=== PATIENT | female | born 1970 | race Two or more races ===

== ENCOUNTER 2017-12-14 12:10 | Emergency (ER) | payer MEDICAID ==
[~2017-12-14] VITALS: Ht 160 cm; Wt 127.1 kg
[~2017-12-14 12:10] MED LIST: HYDR-3240 PO; LOSA50TA6; MIGRAINE MEDICINE; THYROID MEDICINE
[2017-12-14] MEDS ORDERED: HYDROmorphone 1 MG/ML, 1ML IVPush PRN (13:30)
[2017-12-14] MEDS ORDERED: ONDANSETRON 2MG/ML, 2ML IVPush ONE (13:30)
[2017-12-14] MEDS ORDERED: SODIUM CHLORIDE FLUSH 10ML SYR IVF ONE (13:30)
[2017-12-14] MEDS ORDERED: SODIUM CHLORIDE 0.9% 1,000ML IVBOLUS ONE (13:30)
[2017-12-14] MEDS ORDERED: ONDANSETRON 2MG/ML, 2ML ONE (13:31)
[2017-12-14] MEDS ORDERED: HYDROmorphone 2 MG/ML, 1ML ONE (13:31)
[2017-12-14 13:36] LABS: BASOPHILS # (AUTO) 0.03 x10^3/uL (0-0.1); BASOPHILS % (AUTO) 0 % (0-1); EOSINOPHILS % (AUTO) 2 % (1-7); LYMPHOCYTES % (AUTO) 20 % (22-44); MD NO; MEAN CORPUSCULAR HEMOGLOBIN 31.4 pg (27.0-34.8); MEAN CORPUSCULAR HGB CONC 34.2 g/dL (32.4-35.8); MEAN CORPUSCULAR VOLUME 91.7 fL (80-100); MONOCYTES # (AUTO) 0.58 x10^3/uL (0.2-0.8); MONOCYTES % (AUTO) 6 % (2-9); NEUTROPHILS # (AUTO) 6.59 x10^3/uL (1.8-6.8); NEUTROPHILS % (AUTO) 71 % (42-75); PLATELET COUNT 209 x10^3/uL (130-400); RED BLOOD COUNT 5.04 x10^6/uL (3.82-5.3); RED CELL DISTRIBUTION WIDTH 13.9 % (9.6-15.2)
[2017-12-14 13:44] LABS: ALBUMIN 3.2 g/dL (3.4-5.0); ANION GAP 7 mmol/L (5-15); CALCIUM 8.6 mg/dL (8.5-10.1); CHLORIDE 104 mmol/L (98-107); CREATININE 0.61 mg/dL (0.55-1.02)
[2017-12-14 16:33] VITALS: BP 135/76
[2017-12-15] MEDS ORDERED: NAPR500T4 PO (13:03)
[2017-12-15] MEDS ORDERED: GUAI-334 PO (13:03)
[2017-12-15] MEDS ORDERED: LOSA100T6 PO (13:03)
== END 2017-12-14 16:35 | disposition home or self-care (01) ==
LOC: ED 16:05
DX: J02.8 Acute pharyngitis due to other specified organisms (principal); R51 Headache; I10 Essential (primary) hypertension; Z90.49 Acquired absence of other specified parts of digestive tract
CPT/HCPCS: 36415; 70450; 71045; 80048; 82040; 83605; 85025; 96361; 96374; 96375; 99285; J1170; J2405; J7030

== ENCOUNTER 2018-08-25 15:37 | Emergency (ER) | payer MEDICAID ==
[~2018-08-25] VITALS: Ht 160 cm; Wt 123.8 kg
[~2018-08-25 15:37] MED LIST changes: +GUAI-334 PO; +LOSA100T7 PO; -LOSA50TA6; +LOSA50TA7; +NAPR-685 PO
[2018-08-25] MEDS ORDERED: HYDR12.53 PO (16:04)
[2018-08-25] MEDS ORDERED: METF500T17 PO (16:04)
[2018-08-25 16:15] LABS: BASOPHILS # (AUTO) 0.04 x10^3/uL (0-0.1); BASOPHILS % (AUTO) 0 % (0-1); EOSINOPHILS # (AUTO) 0.15 x10^3/uL (0-0.4); EOSINOPHILS % (AUTO) 1 % (1-7); LYMPHOCYTES % (AUTO) 27 % (22-44); MD NO; MEAN CORPUSCULAR HEMOGLOBIN 32.3 pg (27.0-34.8); MEAN CORPUSCULAR HGB CONC 34.8 g/dL (32.4-35.8); MEAN CORPUSCULAR VOLUME 92.8 fL (80-100); MEAN PLATELET VOLUME 9.5 fL (7.4-10.4); MONOCYTES # (AUTO) 0.76 x10^3/uL (0.2-0.8); MONOCYTES % (AUTO) 7 % (2-9); NEUTROPHILS # (AUTO) 6.68 x10^3/uL (1.8-6.8); NEUTROPHILS % (AUTO) 64 % (42-75); PLATELET COUNT 196 x10^3/uL (130-400); RED BLOOD COUNT 4.98 x10^6/uL (3.82-5.3)
[2018-08-25] MEDS ORDERED: KETOROLAC 30 MG/1 ML ONE (16:20)
[2018-08-25] MEDS ORDERED: METHOCARBAMOL 750 MG TABLET ONE (16:20)
[2018-08-25 16:24] LABS: ALBUMIN 3.4 g/dL (3.4-5.0); ANION GAP 9 mmol/L (5-15); CALCIUM 9.1 mg/dL (8.5-10.1); CHLORIDE 107 mmol/L (98-107); CREATININE 0.61 mg/dL (0.55-1.02)
[2018-08-25 16:28] LABS: TROPONIN I < 0.015 ng/mL (0.000-0.045)
[2018-08-25] MEDS ORDERED: KETOROLAC 30 MG/1 ML IM ONE (16:30)
[2018-08-25] MEDS ORDERED: METHOCARBAMOL 750 MG TABLET PO ONE (16:30)
[2018-08-25 18:36] VITALS: BP 119/48
== END 2018-08-25 18:38 | disposition home or self-care (01) ==
LOC: ED 18:00
DX: M47.892 Other spondylosis, cervical region (principal); M25.512 Pain in left shoulder; R06.02 Shortness of breath; R07.9 Chest pain, unspecified
CPT/HCPCS: 36415; 71045; 72125; 73030; 80048; 82040; 84484; 85025; 85379; 93005; 96372; 99285; J1885

== ENCOUNTER 2019-01-03 13:16 | Emergency (ER) | payer MEDICAID ==
[~2019-01-03] VITALS: Ht 160 cm; Wt 121.4 kg
[~2019-01-03 13:16] MED LIST changes: +HYDR12.517 PO; +LOSA100T14 PO; -LOSA100T7 PO; +LOSA50TA14; -LOSA50TA7; +METF500T17 PO
[2019-01-03 13:42] VITALS: BP 147/93
[2019-01-03 14:33] LABS: BASOPHILS # (AUTO) 0.04 x10^3/uL (0-0.1); BASOPHILS % (AUTO) 0 % (0-1); EOSINOPHILS # (AUTO) 0.11 x10^3/uL (0-0.4); EOSINOPHILS % (AUTO) 1 % (1-7); LYMPHOCYTES # (AUTO) 2.21 x10^3/uL (1-3.4); LYMPHOCYTES % (AUTO) 22 % (22-44); MD NO; MEAN CORPUSCULAR HEMOGLOBIN 30.4 pg (27.0-34.8); MEAN CORPUSCULAR HGB CONC 33.3 g/dL (32.4-35.8); MEAN CORPUSCULAR VOLUME 91.3 fL (80-100); MEAN PLATELET VOLUME 9.6 fL (7.4-10.4); MONOCYTES # (AUTO) 0.66 x10^3/uL (0.2-0.8); MONOCYTES % (AUTO) 6 % (2-9); NEUTROPHILS # (AUTO) 7.28 x10^3/uL (1.8-6.8); NEUTROPHILS % (AUTO) 71 % (42-75); PLATELET COUNT 227 x10^3/uL (130-400); RED BLOOD COUNT 5.43 x10^6/uL (3.82-5.3); RED CELL DISTRIBUTION WIDTH 14.4 % (9.6-15.2)
[2019-01-03 14:47] LABS: ALBUMIN 3.3 g/dL (3.4-5.0); ANION GAP 7 mmol/L (5-15); CALCIUM 9.5 mg/dL (8.5-10.1); CHLORIDE 103 mmol/L (98-107)
[2019-01-03 14:50] LABS: ALANINE AMINOTRANSFERASE 69 U/L (12-78); ALKALINE PHOSPHATASE 124 U/L (45-117); BILIRUBIN,TOTAL 0.8 mg/dL (0.2-1.0); TOTAL PROTEIN 8.2 g/dL (6.4-8.2)
--- NOTE | 2019-01-03 16:20 | NUR ---
NO ANSWER IN LOBBY
--- NOTE | 2019-01-03 16:39 | NUR ---
NO ANSWER IN LOBBY.
--- NOTE | 2019-01-03 17:10 | NUR ---
NO ANSWER IN LOBBY. ASSUMING PATIENT ELOPEMENT.
== END 2019-01-03 17:13 | disposition left against medical advice (07) ==
LOC: ED 17:10
DX: R53.1 Weakness (principal); E66.01 Morbid (severe) obesity due to excess calories; Z68.42 Body mass index [BMI] 45.0-49.9, adult
CPT/HCPCS: 36415; 71046; 80053; 85025; 93005; 99284

== ENCOUNTER 2019-12-07 14:55 | Emergency (ER) | payer MEDICAID ==
[~2019-12-07] VITALS: Ht 160 cm; Wt 123.1 kg
[~2019-12-07 14:55] MED LIST changes: +AMLO10TA8 PO
[2019-12-07 15:03] VITALS: BP 158/58
[2019-12-07] MEDS ORDERED: DIPH,PERTUSS(ACELL),TET VAC/PF 0.5 ML IM-VACC ONE ×2 (15:14→15:30)
[2019-12-07] MEDS ORDERED: LIDOCAINE-MPF 1%, 5ML ONE (15:14)
[2019-12-07] MEDS ORDERED: LIDOCAINE-MPF 1%, 5ML INFIL ONE (15:30)
== END 2019-12-07 15:51 | disposition home or self-care (01) ==
LOC: ED 15:30
DX: L02.411 Cutaneous abscess of right axilla (principal); L03.113 Cellulitis of right upper limb; I10 Essential (primary) hypertension; G43.909 Migraine, unspecified, not intractable, without status migrainosus; Z90.49 Acquired absence of other specified parts of digestive tract; Z90.710 Acquired absence of both cervix and uterus
CPT/HCPCS: 10060; 90471; 90715; 99283